=== PATIENT | male | born 1990 | race Caucasian/White ===

== ENCOUNTER 2018-01-24 11:10 | Inpatient (IN) | payer MEDICAID ==
[~2018-01-24] VITALS: Ht 180.3 cm; Wt 57.2 kg
--- NOTE | 2018-01-24 11:11 | NUR ---
PT BIBA ALS TO BED 2
[2018-01-24 11:15] VITALS: BP 119/72
--- NOTE | 2018-01-24 11:20 | NUR ---
27Y/M C/O CHEST PAIN WHILE WALKING WITH DIZZY/NUMB TO JOAQUIN LOWER LEGS, DENIES INJURY. PT STATES HE IS STRESS OUT AT HOME. PT SMELL OF ALCOHOL. EKG DONE FIELD. BED DOWN, BEDRAIL UP X 1, ER MD AWARE AND NOTIFIED OF PT STATUS. HX: DEPRESSION,BIPOLAR,ANXIETY. RX: ZOLOFT AND HYDROXIZINE
--- NOTE | 2018-01-24 12:08 | NUR ---
Patient being evaluated by physician at bedside.
[2018-01-24] MEDS ORDERED: KETOROLAC 30 MG/ML VIAL IVP ONE (12:10)
[2018-01-24 12:29] LABS: BASOPHILS % (AUTO) 0.4 % (0.0-2.0); EOSINOPHILS # (AUTO) 0.1 K/uL (0-0.4); EOSINOPHILS % (AUTO) 2.1 % (0.0-4.0); HEMATOCRIT 46.7 % (36-52); HEMOGLOBIN 15.9 g/dL (12.0-18.0); LYMPHOCYTES # (AUTO) 1.5 K/uL (2.0-11.5); LYMPHOCYTES % (AUTO) 23.9 % (20.5-51.1); MEAN CORPUSCULAR HEMOGLOBIN 30 pg (27-31); MEAN CORPUSCULAR HGB CONC 34 g/dL (33-37); MEAN CORPUSCULAR VOLUME 88.6 fL (80-94); MONOCYTES # (AUTO) 0.4 K/uL (0.8-1.0); MONOCYTES % (AUTO) 5.9 % (1.7-9.3); NEUTROPHILS # (AUTO) 4.3 K/uL (1.8-7.7); NEUTROPHILS % (AUTO) 67.7 % (42.2-75.2); PLATELET COUNT (AUTO) 165 K/uL (140-450); RED BLOOD CELL COUNT(AUTO) 5.27 MIL/uL (4.20-6.10); RED CELL DISTRIBUTION WIDTH 12.8 % (11.6-13.7); WHITE BLOOD COUNT (AUTO) 6.4 K/uL (4.8-10.8)
[2018-01-24 12:54] LABS: PROTHROMBIN TIME 10.5 secs (10.8-13.4)
[2018-01-24 12:56] LABS: CARBON DIOXIDE 31.7 mmol/L (21-32); CREATININE 1.2 mg/dL (0.7-1.3); POTASSIUM 3.7 mmol/L (3.5-5.1); TOTAL BILIRUBIN 0.5 mg/dL (0.0-1.0)
[2018-01-24] MEDS ORDERED: QUET300T1 PO (13:24)
[2018-01-24] MEDS ORDERED: LORazepam 2 MG/ML VIAL IM/IVP PRN (13:40)
[2018-01-24] MEDS ORDERED: MORPHINE SULFATE 4 MG/ML SYR IVP PRN (13:40)
[2018-01-24] MEDS ORDERED: DOCUSATE SODIUM 100 MG GELCAP PO PRN (13:40)
[2018-01-24] MEDS ORDERED: ONDANSETRON 4 MG/2 ML VIAL IM/IVP PRN (13:40)
[2018-01-24] MEDS ORDERED: HYDROcodone/APAP 5/325 MG 1 TAB TAB PO PRN (13:40)
[2018-01-24] MEDS ORDERED: ZOLPIDEM 5 MG TAB PO PRN (13:40)
[2018-01-24] MEDS ORDERED: ACETAMINOPHEN 325 MG TAB PO PRN (13:40)
[2018-01-24 13:53] LABS: APPEARANCE,URINE CLEAR (CLEAR); COLOR,URINE ORANGE (YELLOW)
[2018-01-24 13:54] LABS: BILIRUBIN,URINE NEGATIVE (NEGATIVE); BLOOD, URINE NEGATIVE (NEGATIVE); LEUKOCYTE ESTERASE ,URINE NEGATIVE (NEGATIVE); NITRITE, URINE NEGATIVE (NEGATIVE); UGLUCOSE NEGATIVE (NEGATIVE)
[2018-01-24 13:59] LABS: BARBITURATE, URINE POS. ng/ml (NEG <=200); BENZODIAZEPINE, URINE NEG. ng/mL (NEG <=200); CANNABINOID, URINE POS. ng/mL (NEG <=50); COCAINE, URINE NEG. ng/mL (NEG <=300); OPIATE, URINE NEG. ng/mL (NEG <=2000); PHENCYCLIDINE SCREEN,URINE NEG. ng/mL (NEG <=25); RBC,URINE 0-5 (RARE) /HPF (0-5); WBC,URINE 0-5 (RARE) /HPF (0-5)
[2018-01-24 14:08] LABS: FREE T4 (FREE THYROXINE) 1.28 ng/dL (0.76-1.46); MAGNESIUM 2.2 mg/dL (1.8-2.4); PHOSPHORUS 4.3 mg/dL (2.5-4.9); THYROID STIMULATING HORMONE 0.92 uIU/mL (0.34-3.74)
[2018-01-24] MEDS ORDERED: ATA25 PO (14:27)
--- NOTE | 2018-01-24 14:56 | NUR ---
Patient will be admitted to care of . Admited to tele floor. Will go to room 120-a. Belongings list completed. Report to nando garcia.
--- NOTE | 2018-01-24 14:56 | NUR ---
1449 PT TAKEN TO FLOOR BY RNS HAMIDA AND AUSTYN
--- NOTE | 2018-01-24 15:15 | NUR ---
PT ARRIVED FROM ER IN [facility], PT WALKS FROM HALLWAY TO BED WITH STEADY GAIT, PT AWAKE ALERT, RESP EVEN UNLABORED ON RA, QUIET, FLAT AFFECT, SPEAKS QUIETLY, MOVES ALL EXTREMITIES, DENIES CHEST PAIN NOW, DENIES SOB, PT STATES HE IS HOMELESS, ADMITS TO USING METH YESTERDAY, PT REPORTS FEELING DEPRESSED BUT DENIES SI OR HI, PT ORIENTED TO ROOM AND FLOOR, PLAN OF CARE REVIEWED, NO IMMEDIATE NEEDS AT THIS TIME, CALL VANN WITHIN REACH, SIDE RAILS UP X2, BED LOCKED IN LOW POSITION, WILL CONTINUE TO MONITOR
[2018-01-24 15:30] VITALS: BP 110/70
[2018-01-24] MEDS ORDERED: KETOROLAC 30 MG/ML VIAL IVP PRN (15:30)
--- NOTE | 2018-01-24 16:08 | NUR ---
PT HAD HALF OF SANDWICH MANOLO WELL, REMAINS PAIN FREE, IVF INFUSING SITE CLEAR, EXTRA BLANKET PROVIDED PER PT REQUEST FOR COMFORT.
[2018-01-24] MEDS: NACL 0.9% 1,000 ML IV SCH (16:41)
[2018-01-24] MEDS ORDERED: ASPIRIN 325 MG TAB PO SCH (17:00)
--- NOTE | 2018-01-24 18:23 | NUR ---
PT SLEEPING QUIETLY IN NAD, RESP EVEN UNLABORED ON RA, SKIN WARM DRY COLOR WNL. REMAINS ON AFFILIATE MARKETING SPECIALIST, WILL CONTINUE TO MONITOR.
--- NOTE | 2018-01-24 18:48 | NUR ---
PT SITTING UP TALKING TO MORRIS ON THE PHONE, PT MANOLO 30% DINNER, DENIES CHEST PAIN, SOB, WILL CONTINUE TO MONITOR.
--- NOTE | 2018-01-24 19:13 | NUR ---
RECEIVED BEDSIDE REPORT FROM PATIENT CECILE, PATIENT IN BED ON RA, STATES HAVE PAIN IN CHEST AND SIDES, WILL MEDICATE ACCORDING TO MD ORDER, V/S TAKEN ALL WITHIN NORMAL LIMITS, EXPLAINED PLAN OF CARE, UPDATED BOARD, WILL CONTINUE TO MONITOR.
--- NOTE | 2018-01-24 19:13 | NUR ---
REPORT GIVEN TO GLOBAL PROGRAM DIRECTOR NURSE, PT IN STABLE CONDITION.
[2018-01-24 20:00] VITALS: BP 113/77
[2018-01-24] MEDS: COLCHICINE 0.6 MG TAB PO SCH (20:13)
[2018-01-24] MEDS ORDERED: INFLUENZA VIRUS VACCINE QUAD 0.5 ML SYR IMVAC PRN (21:05)
--- NOTE | 2018-01-24 21:56 | NUR ---
PATIENT FEELS ANXIOUS MEDICATED ACCORDING TO MD ORDER.
--- NOTE | 2018-01-24 22:49 | NUR ---
PATIENT SLEEPING IN BED NO SIGNS OF DISTRESS, CALL LIGHT WITHIN REACH, WILL CONTINUE TO MONITOR.
[2018-01-25] VITALS: BP 108/70
--- NOTE | 2018-01-25 00:20 | NUR ---
V/S TAKEN, ALL WITHIN NORMAL LIMITS, PATIENT DENIES PAIN. WILL CONTINUE TO MONITOR. CALL LIGHT WITHIN REACH.
--- NOTE | 2018-01-25 02:41 | NUR ---
PATIENT SLEEPING IN BED, NO SIGNS OF ACUTE DISTRESS, IVF INFUSING AT 60 ML/HR.
[2018-01-25 04:00] VITALS: BP 100/88
--- NOTE | 2018-01-25 04:11 | NUR ---
V/S TAKEN BP 100/88 HR 77, DENIES PAIN, WILL CONTINUE TO MONITOR.
[2018-01-25] MEDS: NACL 0.9% 1,000 ML IV SCH (05:21)
--- NOTE | 2018-01-25 05:22 | NUR ---
STARTED NEW BAG OF NS INFUSING AT 60 ML/HR.
[2018-01-25 06:50] LABS: BASOPHILS # (AUTO) 0.1 K/uL (0.00-0.22); EOSINOPHILS # (AUTO) 0.4 K/uL (0-0.4); EOSINOPHILS % (AUTO) 5.6 % (0.0-4.0); HEMATOCRIT 43.5 % (36-52); HEMOGLOBIN 14.3 g/dL (12.0-18.0); LYMPHOCYTES # (AUTO) 2.2 K/uL (2.0-11.5); LYMPHOCYTES % (AUTO) 34.5 % (20.5-51.1); MEAN CORPUSCULAR HEMOGLOBIN 30 pg (27-31); MEAN CORPUSCULAR HGB CONC 33 g/dL (33-37); MEAN CORPUSCULAR VOLUME 89.8 fL (80-94); MONOCYTES # (AUTO) 0.5 K/uL (0.8-1.0); MONOCYTES % (AUTO) 8.3 % (1.7-9.3); NEUTROPHILS # (AUTO) 3.2 K/uL (1.8-7.7); NEUTROPHILS % (AUTO) 50.6 % (42.2-75.2); PLATELET COUNT (AUTO) 147 K/uL (140-450); RED BLOOD CELL COUNT(AUTO) 4.84 MIL/uL (4.20-6.10); RED CELL DISTRIBUTION WIDTH 13.1 % (11.6-13.7); WHITE BLOOD COUNT (AUTO) 6.4 K/uL (4.8-10.8)
--- NOTE | 2018-01-25 07:21 | NUR ---
ENDORSED PATIENT TO DAY SHIFT NURSE, PATIENT STABLE.
--- NOTE | 2018-01-25 07:22 | NUR ---
BEDSIDE REPORT FROM PM SHIFT NURSE SUMMER. PT ASLEEP IN BED, RESPIRATIONS EVEN & UNLABORED, FLAC 0. CALL LIGHT WITHIN REACH.
[2018-01-25 07:33] LABS: ANION GAP 9.5 (8-16); CREATININE 1.3 mg/dL (0.7-1.3)
[2018-01-25 07:40] LABS: CARBON DIOXIDE 30.5 mmol/L (21-32)
[2018-01-25 07:44] LABS: CHOL/HDL RATIO 3.3 (1-4.5)
[2018-01-25 08:00] VITALS: BP 103/51
[2018-01-25] MEDS ORDERED: IBUPROFEN 600 MG TAB PO SCH (08:00)
--- NOTE | 2018-01-25 08:47 | NUR ---
PT REFUSED IBUPROFEN D/T C/O DIFFICULTY SWALLOWING BIG PILLS. OFFERED TO CRUSH MED & MIX WITH APPLESAUCE BUT PT REFUSED & STATES HE WILL VOMIT FROM THE TASTE. EXPLAINED BENEFITS OF MED TO PREVENT INFLAMMATION. PT VERBALIZED UNDERSTANDING BUT CONT TO REFUSE. REQUEST FOR SMALLER PILLS IF AVAILABLE. WILL CONTACT PHARMACY.
--- NOTE | 2018-01-25 08:52 | NUR ---
PATIENT HAS BEEN SCREENED AND CATEGORIZED HIGH NUTRITION RISK. PATIENT WILL BE SEEN WITHIN 1-2 DAYS OF ADMISSION. 01/25/18-01/26/[address]
[2018-01-25] MEDS ORDERED: IBUPROFEN 200 MG TAB PO SCH (08:55)
[2018-01-25] MEDS: COLCHICINE 0.6 MG TAB PO SCH (09:00)
--- NOTE | 2018-01-25 09:10 | NUR ---
NOTIFIED PHARMACIST RE: PT REQUEST FOR SMALLER PILLS D/T DIFFICULTY SWALLOWING THEM. PER PHARMACIST, WILL CHANGE IBUPROFEN 600MG 1TAB TO 200MG 3TABS. PT AGREE.
--- NOTE | 2018-01-25 09:47 | NUR ---
PHARMACY NOTIFIED RE: COLCHICINE UNAVAILABLE IN PYXIS. PER PHARMACIST, MED IS OUT OF STOCK IN HOSPITAL AT THIS TIME. AWAITING MED REFILL.
[2018-01-25] MEDS ORDERED: COLCHICINE 0.6 MG TAB PO SCH (10:05)
--- NOTE | 2018-01-25 11:40 | NUR ---
PT ASLEEP IN BED, RESPIRATIONS EVEN & UNLABORED, FLACC 0. AROUSABLE BY AUDITORY STIMULI. VITAL SIGNS OBTAINED AT THIS TIME. CALL LIGHT WITHIN REACH. LEFT AC IV INTACT & ASYMPTOMATIC.
[2018-01-25 12:00] VITALS: BP 97/59
--- NOTE | 2018-01-25 13:43 | NUR ---
01/25/18 RD INITIAL ASSESSMENT COMPLETED PLEASE REFER TO NUTRITION ASSESSMENT UNDER CARE ACTIVITY FOR ESTIMATED NUTRITIONAL NEEDS. 1. CONTINUE CARDIAC DIET TOLERATED 2. DIETITIAN PROVIDED HANDOUT WITH SOUP ABRIL AND FOOD PANTRIES. 3. RD TO FOLLOW-UP 3-5 DAYS, MODERATE RISK MONIQUE CASTAÑEDA RD Addendum: 01/25/18 at [address]ique [address]añeda RD ALSO INCLUDE BELOW RECOMMENDATION: DIETITIAN RECOMMENDS ENSURE ENLIVE 1X/DAY
[2018-01-25 16:00] VITALS: BP 108/65
--- NOTE | 2018-01-25 16:30 | NUR ---
PT WENT OUT TO FRONT LOBBY TO SMOKE WITH HIS FRIENDS. SPOKE TO PT & INFORMED HIM OF NO SMOKING POLICY & RISKS ASSOCIATED WITH SMOKING. OFFERED NICOTINE PATCH. PT AMB BACK TO ROOM, REFUSED NICOTINE PATCH. NOTIFIED DR MAST. PHYSICIAN TO SPEAK WITH PT.
--- NOTE | 2018-01-25 16:48 | NUR ---
PT ELECTED TO LEAVE AMA. DR MAST AT BEDSIDE SPEAKING WITH PT.
--- NOTE | 2018-01-25 17:00 | NUR ---
PT LEFT AMA AT THIS TIME ACCOMPANIED BY FRIENDS & S.O., ABLE TO AMB OUT OF UNIT WITH STEADY GAIT, FLACC 0. SCRUFF WORKER & NAME BAND REMOVED PRIOR TO LEAVING.
[2018-01-25] MEDS ORDERED: hydrOXYzine HCL 25 MG TAB PO SCH (17:40)
[2018-01-25] MEDS ORDERED: QUEtiapine FUMARATE 100 MG TAB PO SCH (21:00)
== END 2018-01-25 17:00 | disposition left against medical advice (07) | DRG 48 ==
LOC: MED 11:10 → MTU 13:20
PROVIDERS: ADMIT General Practice; ATTEND General Practice
DX: G90.9 Disorder of the autonomic nervous system, unspecified (principal); G92 Toxic encephalopathy; E44.0 Moderate protein-calorie malnutrition; F32.9 Major depressive disorder, single episode, unspecified; Z68.1 Body mass index [BMI] 19.9 or less, adult; F17.210 Nicotine dependence, cigarettes, uncomplicated; Z59.0 Homelessness; F19.10 Other psychoactive substance abuse, uncomplicated; F12.10 Cannabis abuse, uncomplicated; F14.10 Cocaine abuse, uncomplicated; F15.10 Other stimulant abuse, uncomplicated; Z83.3 Family history of diabetes mellitus; Z56.0 Unemployment, unspecified; F41.9 Anxiety disorder, unspecified; E86.0 Dehydration; Z53.21 Procedure and treatment not carried out due to patient leaving prior to being seen by health care provider
CPT/HCPCS: 36415; 71045; 80048; 80053; 80305; 81001; 83036; 83690; 83735; 83880; 84100; 84134; 84439; 84443; 84484; 85025; 85610; 85651; 85730; 86140; 87081; 96374; 99285; J1885; J2060; J7030

== ENCOUNTER 2018-02-09 10:15 | Emergency (ER) | payer MEDICAID ==
[~2018-02-09] VITALS: Ht 180.3 cm; Wt 59.0 kg
[~2018-02-09 10:15] MED LIST: ATA25 PO; QUET300T1 PO
[2018-02-09 10:24] VITALS: BP 111/77
[2018-02-09 11:01] VITALS: BP 111/77
== END 2018-02-09 11:02 | disposition home or self-care (01) ==
LOC: MED 10:15
DX: K21.9 Gastro-esophageal reflux disease without esophagitis (principal); F17.210 Nicotine dependence, cigarettes, uncomplicated; Z79.899 Other long term (current) drug therapy
CPT/HCPCS: 99282